=== PATIENT | female | born 1955 ===

== ENCOUNTER → 2017-03-13 | Outpatient (CLI) | payer OTHER ==
[~2017-03-13] VITALS: Ht 154.9 cm; Wt 58.1 kg
[~2017-03-13] MED LIST: ANTIBIOTICS; MIGRAINE MED; SYNTHROID PO
== END | disposition home or self-care (01) ==
LOC: CSSDAY 09:00
DX: M81.0 Age-related osteoporosis without current pathological fracture (principal)
CPT/HCPCS: 96372; J0897